=== PATIENT | male | born 1985 | race Caucasian/White ===

== ENCOUNTER 2019-10-26 08:46 | Outpatient (RCR) | payer MEDICARE, MEDICAID, SELFPAY | END 2019-11-02 23:59 | disposition home or self-care (01) | LOC: SPT 08:46 | PROVIDERS: PCP Family Medicine; Visit Provider Family Medicine | DX: S86.812D Strain of other muscle(s) and tendon(s) at lower leg level, left leg, subsequent encounter (principal); X58.XXXD Exposure to other specified factors, subsequent encounter | CPT/HCPCS: 97110; 97161 ==

== ENCOUNTER 2020-11-07 02:19 | Emergency (ER) | payer MEDICARE, MEDICAID, SELFPAY ==
[2020-11-07 02:25] VITALS: BP 125/71; PULSE 88; RESP 16; TEMP 36.9; O2SAT 95; BMI 46.3
--- NOTE | 2020-11-07 03:33 | XRR_ITS ---
PROCEDURE INFORMATION: Exam: XR Chest Exam date and time: 11/07/2020 3:33 AM Age: 35 years old Clinical indication: Sternal or substernal pain; Additional info: Cp TECHNIQUE: Imaging protocol: XR of the chest. Views: 1 view. COMPARISON: CR Chest 2 views* [id number] 02/01/2016 9:30 AM FINDINGS: Lungs: Low lung volumes. There is a patchy airspace opacity in the left lower lobe, concerning for pneumonia. Pleural spaces: Unremarkable. No pleural effusion. No pneumothorax. Heart/Mediastinum: Unremarkable. No cardiomegaly. Bones/joints: Unremarkable. XR/XR chest 1V portable [id number] IMPRESSION: Imaging findings concerning for left lower lobe pneumonia.
[2020-11-07 03:38] VITALS: BP 128/80; PULSE 74; RESP 22; O2SAT 94
[2020-11-07 03:43] VITALS: RESP 22
[2020-11-07] MEDS: morphine 4 mg/mL SDV 1 mL IVP (03:43)
[2020-11-07] MEDS: ondansetron 2 mg/ML SDV 2 mL 4 MG IVP (03:43)
[2020-11-07 03:50] LABS: Basophils % 0.3 %; Eosinophils # 0.2 10^3/uL (0.0-0.8); Eosinophils % 2.4 %; Lymphocytes # 1.9 10^3/uL (0.8-4.8); Lymphocytes % 21.7 %; Mean Corpuscular HGB Conc 32.6 g/dL (30.0-36.0); Mean Corpuscular Hemoglobin 27.7 pg (28.0-34.0); Mean Corpuscular Volume 85.1 fl (80-94); Mean Platelet Volume 10.2 fL (7.4-10.4); Monocytes # 0.7 10^3/uL (0.2-0.9); Monocytes % 8.4 %; Nucleated Red Blood Cells % 0 %; Platelet Count 230 10^3/cmm (130-400); Red Blood Count 5.05 10^6/uL (4.1-5.3); Red Cell Distribution Width 13.1 % (12.1-15.1); White Blood Count 8.7 10^3/uL (4.0-10.0)
[2020-11-07 04:03] LABS: D Dimer 0.52 ug/mIFEU (0-0.59)
[2020-11-07 04:10] LABS: Troponin(5th) Baseline 8 ng/L (0-15)
[2020-11-07 04:17] LABS: Alanine Aminotransferase 29 U/L (0-41); Albumin Level 4.1 g/dL (3.5-5.2); Alkaline Phosphatase 69 IU/L (40-130); Aspartate Amino Transferase 19 U/L (0-40); Blood Urea Nitrogen 13 mg/dL (6-20); Calcium 8.9 mg/dL (8.5-10.5); Carbon Dioxide 26 mmol/L (22-29); Chloride 103 mmol/L (98-107); Creatine Phosphokinase 51 U/L (39-308); Globulin 2.2 g/dL (1.3-4.6); Glomerular Filtration Rate 109.4 mL/min (90-130); Glucose 93 mg/dL (65-115); NT Pro B Type Natriuretic Pept 5 pg/mL (0-125); Osmolality Calculated 290 mOsm/kg (285-295); Sodium 140 mmol/L (136-145); Total Bilirubin 0.5 mg/dL (0.15-1.2); Total Protein 6.3 g/dL (6.6-8.7)
[2020-11-07] MEDS: ketorolac 30 mg/mL INJ 15 MG IVP (05:08)
[2020-11-07 05:15] VITALS: BP 125/85; PULSE 83; RESP 17; TEMP 36.6; O2SAT 97
--- NOTE | 2020-11-07 08:09 | ED_ITS ---
HPI - Chest Pain General: Chief Complaint: Chest Pain Stated Complaint: CP Time Seen by Provider: 11/07/20 03:16 History of Present Illness: HPI narrative: 35-year-old male with sharp chest discomfort to the left parasternal chest. He is experienced the pain for several hours. He has a history of this prior. He denies any fever cough. Denies vomiting or diarrhea. He denies any known sick contacts MD complaint: chest pain Pertinent past history: other Onset (ago): hour(s) Timing of current episode: constant Prior episodes: Yes Onset: during rest Pain location: substernal and left chest Pain radiation: none Quality: sharp Relieving factors: nothing Exacerbating factors: nothing Context: other Associated symptoms: Deny diaphoresis, dyspnea, fever(s), nausea, palpitations or vomiting Treatment prior to arrival: other (Tylenol which helped some) Review of Systems Const: Denies: fever(s) or diaphoresis Card: Denies: palpitations Resp: Denies: dyspnea GI: Denies: nausea or vomiting Physical Exam Const: COMMON NORMALS: no acute distress GENERAL APPEARANCE: cooperative and comfortable Chest: COMMONS NORMALS: normal inspection of the chest CHEST: Yes tenderness Resp: COMMON NORMALS: normal respiratory effort, No use of accessory muscles and clear to auscultation bilaterally AUSCULTATION: clear to auscultation bilaterally Cardio: COMMON NORMALS: regular rate and regular rhythm RATE: regular rate RHYTHM: regular rhythm GI: COMMON NORMALS: Normal to inspection, nondistended, normoactive bowel s ounds present, Soft to palpation and non-tender PALPATION: Yes Soft to palpation Extremity: COMMON NORMALS: no pedal edema Course Vital Signs: Vital signs: Vital Signs Temperature 97.9 F 11/07/20 05:15 Pulse Rate 83 11/07/20 05:15 Respiratory Rate 17 11/07/20 05:15 Blood Pressure 125/85 11/07/20 05:15 Pulse Oximetry 97 11/07/20 05:15 MDM - Chest Pain MDM Narrative: Medical decision making narrative: 85-year-old male with some what reproducible chest pain that is sharp. No shortness of breath or associated symptoms. D-dimer is negative. EKG shows a normal sinus rhythm without acute ST changes, and a normal troponin. Other laboratory is benign. Chest x-ray shows what appears to be atelectasis in the left base. I do not see a consolidation. he will be allowed home. Lab Data: Labs: Lab Results 11/07/20 11/07/20 11/07/20 Range/Units 03:30 03:30 03:30 WBC 8.7 (4.0-10.0) 10^3/ uL RBC 5.05 (4.1-5.3) 10^6/u L Hgb 14.0 (11.7-16.6) g/dL Hct 43.0 (42.0-52.0) % MCV 85.1 (80-94) fl MCH 27.7 L (28.0-34.0) pg MCHC 32.6 (30.0-36.0) g/dL RDW 13.1 (12.1-15.1) % Plt Count 230 (130-400) 10^3/c mm MPV 10.2 (7.4-10.4) fL Neut % (Auto) 67.0 % Lymph % (Auto) 21.7 % Bertie % (Auto) 8.4 % Eos % (Auto) 2.4 % Baso % (Auto) 0.3 % Neut # (Auto) 5.80 (1.8-7.7) 10^3/u L Lymph # (Auto) 1.9 (0.8-4.8) 10^3/u L Bertie # (Auto) 0.7 (0.2-0.9) 10^3/u L Eos # (Auto) 0.2 (0.0-0.8) 10^3/u L Baso # (Auto) 0.0 (0.0-0.1) 10^3/u L Nucleated RBC % (a uto) 0 % Nucleated RBCs # 0.0 /100WBC D-Dimer 0.52 (0-0.59) ug/mIFE U Sodium 140 (136-145) mmol/L Potassium 4.0 (3.5-5.1) mmol/L Chloride 103 (98-107) mmol/L Carbon Dioxide 26 (22-29) mmol/L Anion Gap 15.0 (5-19) BUN 13 (6-20) mg/dL Creatinine 0.8 (0.7-1.2) mg/dL GFR Calculation 109.4 (90-130) mL/min Glucose 93 (65-115) mg/dL Calculated Osmolal ity 290 (285-295) mOsm/k g Calcium 8.9 (8.5-10.5) mg/dL Total Bilirubin 0.5 (0.15-1.2) mg/dL AST 19 (0-40) U/L ALT 29 (0-41) U/L Alkaline Phosphata se 69 (40-130) IU/L Creatine Kinase 51 (39-308) U/L Troponin T Baselin e (0-15) ng/L NT-Pro-B Natriuret Pep 5 (0-125) pg/mL Total Protein 6.3 L (6.6-8.7) g/dL Albumin 4.1 (3.5-5.2) g/dL Globulin 2.2 (1.3-4.6) g/dL 11/07/20 Range/Units 03:30 WBC (4.0-10.0) 10^3/ uL RBC (4.1-5.3) 10^6/u L Hgb (11.7-16.6) g/dL Hct (42.0-52.0) % MCV (80-94) fl MCH (28.0-34.0) pg MCHC (30.0-36.0) g/dL RDW (12.1-15.1) % Plt Count (130-400) 10^3/c mm MPV (7.4-10.4) fL Neut % (Auto) % Lymph % (Auto) % Bertie % (Auto) % Eos % (Auto) % Baso % (Auto) % Neut # (Auto) (1.8-7.7) 10^3/u L Lymph # (Auto) (0.8-4.8) 10^3/u L Bertie # (Auto) (0.2-0.9) 10^3/u L Eos # (Auto) (0.0-0.8) 10^3/u L Baso # (Auto) (0.0-0.1) 10^3/u L Nucleated RBC % (a uto) % Nucleated RBCs # /100WBC D-Dimer (0-0.59) ug/mIFE U Sodium (136-145) mmol/L Potassium (3.5-5.1) mmol/L Chloride (98-107) mmol/L Carbon Dioxide (22-29) mmol/L Anion Gap (5-19) BUN (6-20) mg/dL Creatinine (0.7-1.2) mg/dL GFR Calculation (90-130) mL/min Glucose (65-115) mg/dL Calculated Osmolal ity (285-295) mOsm/k g Calcium (8.5-10.5) mg/dL Total Bilirubin (0.15-1.2) mg/dL AST (0-40) U/L ALT (0-41) U/L Alkaline Phosphata se (40-130) IU/L Creatine Kinase (39-308) U/L Troponin T Baselin e 8 (0-15) ng/L NT-Pro-B Natriuret Pep (0-125) pg/mL Total Protein (6.6-8.7) g/dL Albumin (3.5-5.2) g/dL Globulin (1.3-4.6) g/dL Discharge Plan Discharge Patient Disposition: Home Clinical Impression: Atypical chest pain, Acute costochondritis Condition: Stable Prescriptions: New ketorolac 10 mg tablet 10 mg PO TID PRN (Reason: pain) Qty: 10 RF: 0 Discharge Orders: Discharge ED (Routine); Ordered 11/07/20 Ordered By: Ted Arriaga Discharge Diet: Advance as tolerated Discharge Activity: Increase activity as tolerated Patient Instructions: Costochondritis (ED) Activity Restrictions/Additional Instructions: Return for worsening pain despite treatment, development of fever, cough, other concerns. Coding Level of Care Code ED Berry Planter for Shon Norwood
== END 2020-11-07 05:10 | disposition home or self-care (01) ==
PROVIDERS: Emergency Provider Emergency Medicine
DX: R07.89 Other chest pain (principal); M94.0 Chondrocostal junction syndrome [Tietze]
CPT/HCPCS: 71045; 80053; 82550; 83880; 84484; 85025; 85378; 96374; 96375; 99284; J1885; J2270; J2405

== ENCOUNTER 2021-08-04 16:27 | Outpatient (CLI) | payer MEDICARE, MEDICAID, SELFPAY ==
--- NOTE | 2021-08-04 | USR_ITS ---
PROCEDURE INFORMATION: Exam: US Duplex Left Lower Extremity Veins, Limited Exam date and time: 08/04/2021 4:39 PM Age: 36 years old Clinical indication: Pain; Leg, lower; Left; Additional info: Lle pain and swelling TECHNIQUE: Imaging protocol: Real-time Duplex ultrasound of the Left Lower Extremity with 2-D curry scale, color Doppler flow and spectral waveform analysis with image documentation. Limited exam focused on the left lower extremity veins. COMPARISON: US ROR venous duplex 10/20/2019 2:36 PM FINDINGS: Left deep veins: Occlusive DVT in the left posterior tibial vein from the calf to the ankle. Left superficial veins: Unremarkable. Saphenofemoral junction is patent without thrombus. Soft tissues: Unremarkable. US/CV venous duplex [id number] IMPRESSION: Occlusive DVT in the left posterior tibial vein from the calf to the ankle.
== END 2021-08-04 16:28 | disposition home or self-care (01) ==
PROVIDERS: Visit Provider Family Medicine
DX: M79.662 Pain in left lower leg (principal); M79.89 Other specified soft tissue disorders; I82.442 Acute embolism and thrombosis of left tibial vein
CPT/HCPCS: 93971

== ENCOUNTER 2022-01-26 05:28 | Emergency (ER) | payer MEDICARE, MEDICAID, SELFPAY ==
[2022-01-26 05:29] VITALS: BP 135/76; PULSE 67; RESP 18; TEMP 36.9; O2SAT 96; BMI 45.6
--- NOTE | 2022-01-26 05:32 | USR_ITS ---
PROCEDURE INFORMATION: Exam: US Abdomen, Limited; Right Upper Quadrant Exam date and time: 01/26/2022 5:45 AM Age: 36 years old Clinical indication: Abdominal pain; Epigastric; Additional info: Abd pain TECHNIQUE: Imaging protocol: Real time ultrasound of the abdomen with image documentation. Limited exam focused on the right upper quadrant. COMPARISON: No relevant prior studies available. FINDINGS: Liver: Liver is diffusely increased in echogenicity, most commonly seen in hepatic steatosis, though other forms of parenchymal liver disease could have a similar appearance. This limits evaluation for subtle isoechoic masses but no masses are seen. Patent main portal vein with normal direction of flow. Gallbladder: Gallstones noted. There is no gallbladder wall thickening or pericholecystic fluid. Positive sonographic Nova's sign. Biliary ducts: Normal. No stones. No dilation. Pancreas: Visualized pancreas is unremarkable. Right kidney: Normal. No mass. No hydronephrosis. US/US gall bladder [id number] IMPRESSION: 1. Hyperechoic liver, which can be seen with fatty infiltration or hepatocellular disease. 2. Imaging findings suggestive of calculus cholecystitis. Further evaluation with HIDA scan should be considered in the adequate clinical setting.
--- NOTE | 2022-01-26 05:33 | ED_ITS ---
Documented by User: Juliane Nieto MD 01/26/22 05:35 HPI - Abdominal Pain General: Chief Complaint: Abdominal Pain Stated Complaint: ABD PAIN Time Seen by Provider: 01/26/22 05:29 Source: patient and EMS Mode of arrival: EMS Limitations: no limitations History of Present Illness: 36-year-old male states has been having right upper quadrant pain since last evening he states the pain is worsening states pain is currently 9 out of 10 states it is worse with palpation. He has no surgical history he has had nausea denies vomiting he denies any fever denies any diarrhea. Denies any known sick contacts. Associated Symptoms: Reports nausea; Denies chills, dysuria and fever(s) Review of Systems Const: Denies: fever(s), chills, body aches or change in appetite Eyes: Denies: blurry vision or eye discomfort ENMT: Denies: throat pain or dental pain Card: Denies: chest pain Resp: Denies: dyspnea GI: Reports: abdominal pain and nausea : Denies: dysuria Musc: Denies: neck pain or back pain Skin/Breast: Denies: rash Neuro: Denies: headache(s) Psych: Denies: depression Dominic/Lymph: Denies: easy bruising All/Imm: Denies: urticaria PFSH ED PFSH: Medical History (Updated 01/26/22 @ 07:13 by Nghia Ralph DO) No pertinent past medical history Social History (Updated 01/26/22 @ 05:34 by Juliane Nieto MD) Substance/Drug Use: never Physical Exam Const: COMMON NORMALS: no acute distress, patient oriented x3 and healthy appearing HENMT: COMMON NORMALS: normocephalic and atraumatic HEAD & SCALP: normocephalic and atraumatic Eye: COMMON NORMALS: Equal, round and reactive pupils present and EOMs intact bilaterally PUPIL: Yes Equal, round and reactive pupils present Neck/C-Spine: COMMON NORMALS: full ROM and supple Chest: COMMONS NORMALS: normal inspection of the chest and normal palpation of entire chest wall Resp: COMMON NORMALS: normal respiratory effort, No retractions, No use of ac cessory muscles and clear to auscultation bilaterally AUSCULTATION: clear to auscultation bilaterally Cardio: COMMON NORMALS: regular rate, regular rhythm and No murmurs present (Cardio) RATE: regular rate RHYTHM: regular rhythm GI: COMMON NORMALS: Normal to inspection, nondistended, normoactive bowel sounds present, Soft to palpation and no masses PALPATION: Yes Soft to palpation and Yes Tenderness to palpation present (GI) Details: RUQ Extremity: COMMON NORMALS: normal to inspection and full ROM Neuro: COMMON NORMALS: patient oriented x3, moves all extremities and no focal motor deficits Psych: COMMON NORMALS: mental status grossly normal, Normal thought process present and cooperative THOUGHT PROCESS: Normal thought process present Skin: COMMON NORMALS: no rashes or lesions noted and no wounds GENERAL SKIN EXAM: no rashes or lesions noted Course Vital Signs: Vital signs: Vital Signs Temperature 98.4 F 01/26/22 05:29 Pulse Rate 55 L 01/26/22 06:15 Respiratory Rate 16 01/26/22 06:15 Blood Pressure 115/74 01/26/22 06:15 Pulse Oximetry 97 01/26/22 06:15 Oxygen Delivery Me thod 01/26/22 06:15 Oxygen Flow Rate 2 01/26/22 06:15 MDM - Abdominal Pain Lab Data 01/26/22 05:48 01/26/22 05:48 Labs/Radiology: Radiology Impressions Gallbladder Ultrasound 01/26/22 05:32 IMPRESSION: 1. Hyperechoic liver, which can be seen with fatty infiltration or hepatocellular disease. 2. Imaging findings suggestive of calculus cholecystitis. Further evaluation with HIDA scan should be considered in the adequate clinical setting. Laboratory Results WBC 9.5 10^3/uL (4.0-10.0) 01/26/22 05:48 RBC 5.31 10^6/uL (4.1-5.3) H 01/26/22 05:48 Hgb 14.7 g/dL (11.7-16.6) 01/26/22 05:48 Hct 45.0 % (42.0-52.0) 01/26/22 05:48 MCV 84.7 fl (80-94) 01/26/22 05:48 MCH 27.7 pg (28.0-34.0) L 01/26/22 05:48 MCHC 32.7 g/dL (30.0-36.0) 01/26/22 05:48 RDW 13.1 % (12.1-15.1) 01/26/22 05:48 Plt Count 241 10^3/cmm (130-400) 01/26/22 05:48 MPV 10.3 fL (7.4-10.4) 01/26/22 05:48 Neut % (Auto) 56.8 % 01/26/22 05:48 Lymph % (Auto) 31.3 % 01/26/22 05:48 Screven % (Auto) 8.1 % 01/26/22 05:48 Eos % (Auto) 3.0 % 01/26/22 05:48 Baso % (Auto) 0.6 % 01/26/22 05:48 Neut # (Auto) 5.41 10^3/uL (1.8-7.7) 01/26/22 05:48 Lymph # (Auto) 3.0 10^3/uL (0.8-4.8) 01/26/22 05:48 [place] # (Auto) 0.8 10^3/uL (0.2-0.9) 01/26/22 05:48 Eos # (Auto) 0.3 10^3/uL (0.0-0.8) 01/26/22 05:48 Baso # (Auto) 0.1 10^3/uL (0.0-0.1) 01/26/22 05:48 Nucleated RBC % (auto) 0 % 01/26/22 05:48 Nucleated RBCs # 0.0 /100WBC 01/26/22 05:48 Sodium 140 mmol/L (136-145) 01/26/22 05:48 Potassium 4.1 mmol/L (3.5-5.1) 01/26/22 05:48 Chloride 103 mmol/L (98-107) 01/26/22 05:48 Carbon Dioxide 25 mmol/L (22-29) 01/26/22 05:48 Anion Gap 16.1 (5-19) 01/26/22 05:48 BUN 14 mg/dL (6-20) 01/26/22 05:48 Creatinine 1.0 mg/dL (0.7-1.2) 01/26/22 05:48 GFR Calculation 84.1 mL/min (90-130) L 01/26/22 05:48 Glucose 115 mg/dL (65-115) 01/26/22 05:48 Calculated Osmolality 291 mOsm/kg (285-295) 01/26/22 05:48 Calcium 9.5 mg/dL (8.5-10.5) 01/26/22 05:48 Total Bilirubin 0.3 mg/dL (0.15-1.2) 01/26/22 05:48 AST 18 U/L (0-40) 01/26/22 05:48 ALT 25 U/L (0-41) 01/26/22 05:48 Alkaline Phosphatase 86 U/L (40-130) 01/26/22 05:48 Total Protein 6.9 g/dL (6.6-8.7) 01/26/22 05:48 Albumin 4.2 g/dL (3.5-5.2) 01/26/22 05:48 Globulin 2.7 g/dL (1.3-4.6) 01/26/22 05:48 Lipase 21 U/L (13-60) 01/26/22 05:48 Discharge Plan Discharge Patient Disposition: Home Clinical Impression: Biliary colic, Cholelithiasis Prescriptions: New hydrocodone-acetaminophen 5-325 mg tablet 1 tab PO Q6H PRN (Reason: pain) Qty: 7 0RF ondansetron HCl 4 mg tablet 4 mg PO Q6H PRN (Reason: nausea and vomiting) Qty: 20 0RF No Action ketorolac 10 mg tablet 10 mg PO TID PRN (Reason: pain) Qty: 10 0RF Discharge Orders: Discharge ED (Routine); Ordered 01/26/22 Ordered By: Nghia Ralph Patient Instructions: Abdominal Pain (ED), Opioid Safety, Pain Management Activity Restrictions/Additional Instructions: You were seen today for abdominal pain gallbladder ultrasound to suggest gallstones although there is no acute infection in the gallbladder laboratory's test showed the same. Avoid fatty foods spicy foods, meats and citrus foods. 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 Sign Out Sign Out Data: Patient Sign Out occurred on 01/26/22 at 06:07. Patient's care was discussed, a nd care was transferred from to Nghia Ralph DO. Coding Level of Care Code ED [employer] Builder for Chg Fwd Exam Comprehensive Documented by User: Nghia Ralph DO 01/26/22 07:15 HPI - Abdominal Pain General: Chief Complaint: Abdominal Pain Stated Complaint: ABD PAIN Time Seen by Provider: 01/26/22 05:29 PFSH ED PFSH: Medical History (Updated 01/26/22 @ 07:13 by Nghia Ralph DO) No pertinent past medical history Social History (Updated 01/26/22 @ 05:34 by Juliane Nieto MD) Substance/Drug Use: never Course Vital Signs: Vital signs: Vital Signs Temperature 98.4 F 01/26/22 05:29 Pulse Rate 55 L 01/26/22 06:15 Respiratory Rate 16 01/26/22 06:15 Blood Pressure 115/74 01/26/22 06:15 Pulse Oximetry 97 01/26/22 06:15 Oxygen Delivery Me thod 01/26/22 06:15 Oxygen Flow Rate 2 01/26/22 06:15 MDM - Abdominal Pain Medical Decision Making Care assumed at change of shift. Labs and imaging reviewed cholelithiasis noted no acute changes of cholecystitis laboratory tests show no elevation of transaminases or T bili or white count. We will discharge patient home refer to general surgery. Discussed dietary restrictions to avoid further exacerbations. Medical Records I reviewed the patient's medical records. Lab Data I reviewed the patient's lab results. 01/26/22 05:48 01/26/22 05:48 Labs/Radiology: Radiology Impressions Gallbladder Ultrasound 01/26/22 05:32 IMPRESSION: 1. Hyperechoic liver, which can be seen with fatty infiltration or hepatocellular disease. 2. Imaging findings suggestive of calculus cholecystitis. Further evaluation with HIDA scan should be considered in the adequate clinical setting. Laboratory Results WBC 9.5 10^3/uL (4.0-10.0) 01/26/22 05:48 RBC 5.31 10^6/uL (4.1-5.3) H 01/26/22 05:48 Hgb 14.7 g/dL (11.7-16.6) 01/26/22 05:48 Hct 45.0 % (42.0-52.0) 01/26/22 05:48 MCV 84.7 fl (80-94) 01/26/22 05:48 MCH 27.7 pg (28.0-34.0) L 01/26/22 05:48 MCHC 32.7 g/dL (30.0-36.0) 01/26/22 05:48 RDW 13.1 % (12.1-15.1) 01/26/22 05:48 Plt Count 241 10^3/cmm (130-400) 01/26/22 05:48 MPV 10.3 fL (7.4-10.4) 01/26/22 05:48 Neut % (Auto) 56.8 % 01/26/22 05:48 Lymph % (Auto) 31.3 % 01/26/22 05:48 Screven % (Auto) 8.1 % 01/26/22 05:48 Eos % (Auto) 3.0 % 01/26/22 05:48 Baso % (Auto) 0.6 % 01/26/22 05:48 Neut # (Auto) 5.41 10^3/uL (1.8-7.7) 01/26/22 05:48 Lymph # (Auto) 3.0 10^3/uL (0.8-4.8) 01/26/22 05:48 Screven # (Auto) 0.8 10^3/uL (0.2-0.9) 01/26/22 05:48 Eos # (Auto) 0.3 10^3/uL (0.0-0.8) 01/26/22 05:48 Baso # (Auto) 0.1 10^3/uL (0.0-0.1) 01/26/22 05:48 Nucleated RBC % (auto) 0 % 01/26/22 05:48 Nucleated RBCs # 0.0 /100WBC 01/26/22 05:48 Sodium 140 mmol/L (136-145) 01/26/22 05:48 Potassium 4.1 mmol/L (3.5-5.1) 01/26/22 05:48 Chloride 103 mmol/L (98-107) 01/26/22 05:48 Carbon Dioxide 25 mmol/L (22-29) 01/26/22 05:48 Anion Gap 16.1 (5-19) 01/26/22 05:48 BUN 14 mg/dL (6-20) 01/26/22 05:48 Creatinine 1.0 mg/dL (0.7-1.2) 01/26/22 05:48 GFR Calculation 84.1 mL/min (90-130) L 01/26/22 05:48 Glucose 115 mg/dL (65-115) 01/26/22 05:48 Calculated Osmolality 291 mOsm/kg (285-295) 01/26/22 05:48 Calcium 9.5 mg/dL (8.5-10.5) 01/26/22 05:48 Total Bilirubin 0.3 mg/dL (0.15-1.2) 01/26/22 05:48 AST 18 U/L (0-40) 01/26/22 05:48 ALT 25 U/L (0-41) 01/26/22 05:48 Alkaline Phosphatase 86 U/L (40-130) 01/26/22 05:48 Total Protein 6.9 g/dL (6.6-8.7) 01/26/22 05:48 Albumin 4.2 g/dL (3.5-5.2) 01/26/22 05:48 Globulin 2.7 g/dL (1.3-4.6) 01/26/22 05:48 Lipase 21 U/L (13-60) 01/26/22 05:48 Discharge Plan Discharge Patient Disposition: Home Clinical Impression: Biliary colic, Cholelithiasis Prescriptions: New hydrocodone-acetaminophen 5-325 mg tablet 1 tab PO Q6H PRN (Reason: pain) Qty: 7 0RF ondansetron HCl 4 mg tablet 4 mg PO Q6H PRN (Reason: nausea and vomiting) Qty: 20 0RF No Action ketorolac 10 mg tablet 10 mg PO TID PRN (Reason: pain) Qty: 10 0RF Discharge Orders: Discharge ED (Routine); Ordered 01/26/22 Ordered By: Nghia Ralph Patient Instructions: Abdominal Pain (ED), Opioid Safety, Pain Management Activity Restrictions/Additional Instructions: You were seen today for abdominal pain gallbladder ultrasound to suggest gallstones although there is no acute infection in the gallbladder laboratory's test showed the same. Avoid fatty foods spicy foods, meats and citrus foods. 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 Sign Out Sign Out Data: Patient Sign Out occurred on 01/26/22 at 06:07. Patient's care was discussed, and care was transferred from to Nghia Ralph DO. Coding Level of Care Code ED [employer] Builder for Chg Fwd Exam Comprehensive
--- NOTE | 2022-01-26 05:44 | ECG_ITS ---
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 Measurements Intervals [place] Rate: 54 P: -5 MD: 209 QRS: 0 QRSD: 131 T: 26 QT: 454 QTc: 434 Interpretive Statements SINUS BRADYCARDIA WITH SINUS ARRHYTHMIA INTRAVENTRICULAR CONDUCTION DELAY [130+ ms QRS DURATION] MINIMAL VOLTAGE CRITERIA FOR LVH, CONSIDER NORMAL VARIANT [MEETS CRITERIA IN ONE OF: R(aVL), S(V1), R(V5), R(V5/V6)+S(V1)] PROBABLE LATERAL MYOCARDIAL INFARCTION , OF INDETERMINATE AGE [35 ms Q WAVE IN I/aVL/V5/V6] No previous ECG available for comparison Electronically Signed On 01-26-2022 11:09:40 TRUCKER HAND by Merritt Guzman M.D. [email or web address] [email or web address]/[id number]
[2022-01-26 05:50] VITALS: RESP 15; O2SAT 98
[2022-01-26] MEDS: morphine 4 mg/mL SDV 1 mL IVP (05:50)
[2022-01-26] MEDS: ondansetron 2 mg/ML SDV 2 mL 4 MG IVP (05:50)
[2022-01-26] MEDS: sodium chloride 0.9% 1,000 ML 999 ML IV (05:50)
[2022-01-26 06:06] LABS: Basophils # 0.1 10^3/uL (0.0-0.1); Basophils % 0.6 %; Eosinophils # 0.3 10^3/uL (0.0-0.8); Hemoglobin 14.7 g/dL (11.7-16.6); Lymphocytes % 31.3 %; Mean Corpuscular HGB Conc 32.7 g/dL (30.0-36.0); Mean Corpuscular Hemoglobin 27.7 pg (28.0-34.0); Mean Corpuscular Volume 84.7 fl (80-94); Mean Platelet Volume 10.3 fL (7.4-10.4); Monocytes # 0.8 10^3/uL (0.2-0.9); Monocytes % 8.1 %; Neutrophils # 5.41 10^3/uL (1.8-7.7); Neutrophils % 56.8 %; Nucleated Red Blood Cells % 0 %; Platelet Count 241 10^3/cmm (130-400); Red Blood Count 5.31 10^6/uL (4.1-5.3); Red Cell Distribution Width 13.1 % (12.1-15.1); White Blood Count 9.5 10^3/uL (4.0-10.0)
[2022-01-26 06:15] VITALS: BP 115/74; PULSE 55; RESP 16; O2SAT 97
[2022-01-26 06:26] LABS: Alanine Aminotransferase 25 U/L (0-41); Albumin Level 4.2 g/dL (3.5-5.2); Alkaline Phosphatase 86 U/L (40-130); Anion Gap 16.1 (5-19); Aspartate Amino Transferase 18 U/L (0-40); Blood Urea Nitrogen 14 mg/dL (6-20); Calcium 9.5 mg/dL (8.5-10.5); Carbon Dioxide 25 mmol/L (22-29); Chloride 103 mmol/L (98-107); Globulin 2.7 g/dL (1.3-4.6); Glomerular Filtration Rate 84.1 mL/min (90-130); Glucose 115 mg/dL (65-115); Lipase 21 U/L (13-60); Osmolality Calculated 291 mOsm/kg (285-295); Potassium 4.1 mmol/L (3.5-5.1); Sodium 140 mmol/L (136-145); Total Bilirubin 0.3 mg/dL (0.15-1.2); Total Protein 6.9 g/dL (6.6-8.7)
[2022-01-26 07:42] VITALS: BP 138/83; PULSE 62; RESP 13; O2SAT 94
--- NOTE | 2022-01-29 13:17 | DCPLANNER ---
Addendum entered by Sara Finn 02/15/22 14:12: Patient had a follow up appointment scheduled with general surgery, this appointment has been cancelled. Original Note: manager marketing had message to schedule a follow up appointment for patient with general surgery. manager marketing sent patients information to the front office staff at general surgery. Patients information will be printed and reviewed. Clinic will call patient with appointment information.
== END 2022-01-26 07:30 | disposition home or self-care (01) ==
PROVIDERS: Emergency Medicine; Emergency Provider Family Medicine
DX: K80.20 Calculus of gallbladder without cholecystitis without obstruction (principal)
CPT/HCPCS: 76705; 80053; 83690; 85025; 93005; 96361; 96374; 96375; 99285; J2270; J2405; J7030

== ENCOUNTER 2023-05-18 20:25 | Emergency (ER) | payer MEDICARE, MEDICAID, SELFPAY ==
[2023-05-18] VITALS (8 sets, daily range): BP systolic 105–136; BP diastolic 48–82; PULSE 65–108; RESP 13–35; TEMP 36.5; O2SAT 91–100
--- NOTE | 2023-05-18 20:53 | W.ED.ABDPA2 ---
Documented by User: OMRE Rodriguez 05/18/23 23:17 HPI - Abdominal Pain General: Chief Complaint: Abdominal Pain Stated Complaint: severe constant abd pain right side Time Seen by Provider: 05/18/23 20:28 Source: patient Mode of arrival: ambulatory Limitations: no limitations History of Present Illness: Patient is a 37-year-old male here from [facility] for evaluation of right lower abdominal pain. Patient states earlier today he was seated at his computer when he began feeling some pain to his right lower abdomen. Patient states since that time pain has progressively increased and is now complaining of severe persistent pain. He states on the way to the emergency department he got sick to his stomach and vomited once. He has not noticed any change in his bowel habits. He is urinating normally. He does not complain of any back or chest pain. No fevers. Denies previous abdominal surgeries. MD elicited complaint: abdominal pain Pertinent past history: none Onset (ago): hour(s) Pain Consistency: constant Location: RLQ Severity: severe Quality: sharp Radiation: none Migration to: no migration Exacerbating factors: movement Relieving factors: nothing Associated Symptoms: Reports nausea and vomiting (x 1); Denies change in bowel habits, chills, dysuria, fever(s), hematochezia and melena Review of Systems Const: Denies: fever(s), chills, body aches, fatigue or malaise Card: Denies: chest pain Resp: Denies: dyspnea GI: Reports: abdominal pain, nausea and vomiting (x 1); Denies: change in bowel habits, hematochezia or melena : Denies: flank pain, difficulty urinating, dysuria, urinary frequency, urinary urgency or urinary hesitancy Musc: Denies: back pain Skin/Breast: Denies: rash Neuro: Denies: headache(s), numbness in extremities, weakness in extremities, sensory changes or dizziness PFS ED PFSH: Medical History No pertinent past medical history Social History Substance/Drug Use: never Physical Exam Const: COMMON NORMALS: alert EXAM LIMITATIONS: other limitations (pt is diagnosed with autism and intellectual delays ) GENERAL APPEARANCE: cooperative and in distress (appears uncomfortable) Eye: COMMON NORMALS: no scleral icterus Chest: COMMONS NORMALS: normal inspection of the chest and normal palpation of entire chest wall Resp: COMMON NORMALS: normal respiratory effort and clear to auscultation bilaterally AUSCULTATION: clear to auscultation bilaterally Cardio: COMMON NORMALS: regular rate and regular rhythm RATE: regular rate RHYTHM: regular rhythm GI: COMMON NORMALS: Normal to inspection, nondistended, normoactive bowel sounds present AUSCULTATION: Yes normoactive bowel sounds PALPATION: Yes Tenderness to palpation present (GI) (throughout R abdomen), Yes Guarding due to palpation present (GI), No Rigid due to palpation and Yes Hepatomegaly present : COMMON NORMALS: Yes no CVA tenderness BLADDER/KIDNEY EXAM: Yes no CVA tenderness Back/Pelvis: COMMON NORMALS: no CVA tenderness and thoracic and lumbar spine normal to inspection Extremity: GENERAL: Yes normal exam except as noted Neuro: ESTEBAN COMA SCALE: document GCS findings [place] coma scale eye opening: Spontaneous [place] coma scale verbal response: Orientated [place] coma scale motor response: Obey commands [place] coma scale total score: 15 SENSORIUM/ORIENTATION: Yes alert Skin: COMMON NORMALS: no rashes or lesions noted GENERAL SKIN EXAM: no rashes or lesions noted Course Consultations: Consultation #1: Dr. Chan-recommends Cipro/Flagyl and follow up with general surgery in office; return precautions Vital Signs: Vital signs: Vital Signs Temperature 97.7 F 05/18/23 20:41 Pulse Rate 108 H 05/18/23 22:25 Respiratory Rate 16 05/18/23 22:25 Blood Pressure 128/71 05/18/23 22:25 Pulse Oximetry 93 05/18/23 22:25 Oxygen Delivery Me thod Room Air 05/18/23 20:41 MDM - Abdominal Pain Medical Decision Making Patient is a 37-year-old male here for complaints of right-sided abdominal pain beginning this morning. History is somewhat limited given his intellectual disability. He does have pain throughout the right side of his abdomen. Vitals are stable upon arrival. Blood work showing a white count of 15.4. LFTs including tbili and lipase are normal. CT scan showing acute cholecystitis with recommendations for correlation with biliary labs and right upper quadrant ultrasound. Interestingly, patient had an ultrasound back in 01/2022 which showed acute cholecystitis. He states he never followed up regarding this ultrasound but that pain subsided on its own. I spoke to general surgeon Dr. Chan and reviewed case with him. Agreed that obtaining US tonight probably wouldn't operations management professionals given his normal LFTs. He recommended placing patient on Cipro/Flagyl and having him follow-up with general surgery. Patient on re-examination appears much more improved. He is now rating his pain at a 2/10 and sleeping comfortably. Even with patient's intellectual disability, he remains his own guardian. He was instructed to give discharge paperwork to [facility] director so they can ensure proper follow-up. Incidental finding on his CT scan of osteonecrosis of both femoral heads. He will also be referred to orthopedics for this. Lab Data 05/18/23 21:02 05/18/23 21:02 Labs/Radiology: Radiology Impressions Abdomen/Pelvis CT 05/18/23 20:57 IMPRESSION: 1. Acute cholecystitis. Correlation with biliary labs and right upper quadrant ultrasound is recommended. 2. Osteonecrosis of both femoral heads. Follow-up outpatient orthopedic evaluation is recommended. 3. Hepatomegaly and hepatic steatosis. Consider correlation with clinical and laboratory findings for steatohepatitis. Laboratory Results WBC 15.41 10^3/uL (3.29-11.43) H 05/18/23 21: RBC 5.57 10^6/uL (3.85-5.65) 05/18/23 21: Hgb 15.10 g/dL (11.27-16.99) 05/18/23 21: Hct 45.4 % (37-53) 05/18/23 21: MCV 81.5 fl (82-101) L 05/18/23 21: MCH 27.1 pg (27-33) 05/18/23 21: MCHC 33.3 g/dL (30-55) 05/18/23 21: RDW 13.0 % (12.1-15.1) 05/18/23 21: Plt Count 310 10^3/cmm (157-399) 05/18/23 21: MPV 9.8 fL (7.4-10.4) 05/18/23 21: Neut % (Auto) 68.5 % 05/18/23 21: Lymph % (Auto) 20.9 % 05/18/23 21:02 [place] % (Auto) 8.1 % 05/18/23 21:02 Eos % (Auto) 1.9 % 05/18/23 21:02 Baso % (Auto) 0.3 % 05/18/23 21:02 Neut # (Auto) 10.55 10^3/uL (1.8-7.7) H 05/18/23 21:02 Lymph # (Auto) 3.2 10^3/uL (0.8-4.8) 05/18/23 21:02 [place] # (Auto) 1.3 10^3/uL (0.2-0.9) H 05/18/23 21:02 Eos # (Auto) 0.3 10^3/uL (0.0-0.8) 05/18/23 21:02 Baso # (Auto) 0.1 10^3/uL (0.0-0.1) 05/18/23 21:02 Nucleated RBC % (auto) 0 % 05/18/23 21:02 Nucleated RBCs # 0.0 /100WBC 05/18/23 21:02 Sodium 138 mmol/L (136-145) 05/18/23 21:02 Potassium 3.8 mmol/L (3.5-5.1) 05/18/23 21:02 Chloride 98 mmol/L (98-107) 05/18/23 21:02 Carbon Dioxide 25 mmol/L (22-29) 05/18/23 21:02 Anion Gap 18.8 (5-19) 05/18/23 21:02 BUN 14 mg/dL (6-20) 05/18/23 21:02 Creatinine 1.0 mg/dL (0.7-1.2) 05/18/23 21:02 GFR Calculation 83.6 mL/min (90-130) L 05/18/23 21:02 Glucose 146 mg/dL (65-115) H 05/18/23 21:02 Calculated Osmolality 289 mOsm/kg (285-295) 05/18/23 21:02 Calcium 9.8 mg/dL (8.5-10.5) 05/18/23 21:02 Total Bilirubin 0.4 mg/dL (0.15-1.2) 05/18/23 21:02 AST 17 U/L (0-40) 05/18/23 21:02 ALT 25 U/L (0-41) 05/18/23 21:02 Alkaline Phosphatase 89 U/L (40-130) 05/18/23 21:02 Total Protein 7.0 g/dL (6.6-8.7) 05/18/23 21:02 Albumin 4.5 g/dL (3.5-5.2) 05/18/23 21:02 Globulin 2.5 g/dL (1.3-4.6) 05/18/23 21:02 Lipase 21 U/L (13-60) 05/18/23 21:02 Urine Color Yellow (Yellow) 05/18/23 23:30 Urine Appearance Clear (CLEAR) 05/18/23 23:30 Urine pH 5 (5-7) 05/18/23 23:30 Ur Specific [place] 1.010 (1.005-1.030) 05/18/23 23:30 Urine Protein 1+ (Negative) H 05/18/23 23:30 Urine Glucose (UA) Norm (Normal) 05/18/23 23:30 Urine Ketones 1+ (Negative) H 05/18/23 23:30 Urine Blood Neg (Negative) 05/18/23 23:30 Urine Nitrate Negative (Negative) 05/18/23 23:30 Urine Bilirubin Neg (Negative) 05/18/23 23:30 Urine Urobilinogen Neg mg/dL (Negative) 05/18/23 23:30 Ur Leukocyte Esterase Trace (Negative) H 05/18/23 23:30 Urine RBC 0-4 /hpf (0-2) H 05/18/23 23:30 Urine WBC 0-4 /hpf (0-5) H 05/18/23 23:30 Ur Squamous Epith Cells 0-4 /hpf (0-5) H 05/18/23 23:30 Amorphous Sediment Not Reportable 05/18/23 23:30 Urine Bacteria Trace /hpf (NONE) 05/18/23 23:30 Hyaline Casts 0-4 /lpf H 05/18/23 23:30 Urine Mucus Trace /hpf 05/18/23 23:30 All radiology interpretation(s) finalized by discharge Discharge Plan Discharge Patient Disposition: Home Clinical Impression: Cholecystitis Condition: Stable Prescriptions: New metronidazole 500 mg tablet 500 mg PO BID 7 Days Qty: 14 0RF Cipro 500 mg tablet 500 mg PO Q12H Qty: 14 0RF Continued hydrocodone-acetaminophen 5-325 mg tablet 1 tab PO Q6H PRN (Reason: pain) Qty: 7 0RF ondansetron HCl 4 mg tablet 4 mg PO Q6H PRN (Reason: nausea and vomiting) Qty: 10 0RF No Action ketorolac 10 mg tablet 10 mg PO TID PRN (Reason: pain) Qty: 10 0RF Discharge Orders: Discharge ED (Routine); Ordered 05/18/23 Ordered By: Anais Mascorro Referrals: Davin Chew MD [Primary Care Provider] - Patient Instructions: Cholecystitis (ED), Biliary Colic (ED), Gallstones (ED), Opioid Safety, Pain Management Activity Restrictions/Additional Instructions: PLEASE SHOW DISCHARGE PAPERWORK TO [facility] DIRECTOR UPON DISCHARGE AND RETURN TO THE FACILITY. Your CT scan today showed cholecystitis which is acute inflammation of your gallbladder. I have spoken to our general surgeon on-call and because your liver/biliary labs are normal they are recommending we treat you with antibiotics at this time. Case management should reach out to [facility] this week to set you up with your follow-up appointment with general surgery. YOUR ANTIBIOTICS AND PAIN/NAUSEA MEDS HAVE BEEN ESCRIPTED TO [facility]. PICK THESE UP TOMORROW AND START IMMEDIATELY. You need to return to the emergency department immediately for worsening or constant pain, repetitive episodes of vomiting, fevers greater than 100.4, yellowing to your skin or eyes, generally feeling worse or unwell, or any other concerns you may have. Your CT scan also showed an incidental finding of: Osteonecrosis of both femoral heads. Follow-up outpatient orthopedic evaluation is recommended. I will also place a case management referral for this. Coding Level of Care Code ED Mail Opener for Chg Fwd Documented by User: Ted Arriaga, 05/18/23 23:52 HPI - Abdominal Pain General: Chief Complaint: Abdominal Pain Stated Complaint: severe constant abd pain right side Time Seen by Provider: 05/18/23 20:28 [facility] ED PFSH: Medical History No pertinent past medical history Social History Substance/Drug Use: never Physical Exam Neuro: ESTEBAN COMA SCALE: document GCS findings [place] coma scale total score: 15 Course Vital Signs: Vital signs: Vital Signs Temperature 97.7 F 05/18/23 20:41 Pulse Rate 108 H 05/18/23 22:25 Respiratory Rate 16 05/18/23 22:25 Blood Pressure 128/71 05/18/23 22:25 Pulse Oximetry 93 05/18/23 22:25 Oxygen Delivery Me thod Room Air 05/18/23 20:41 MDM - Abdominal Pain Medical Decision Making Patient is a 37-year-old male here for complaints of right-sided abdominal pain beginning this morning. History is somewhat limited given his intellectual disability. He does have pain throughout the right side of his abdomen. Vitals are stable upon arrival. Blood work showing a white count of 15.4. LFTs including tbili and lipase are normal. CT scan showing acute cholecystitis with recommendations for correlation with biliary labs and right upper quadrant ultrasound. Interestingly, patient had an ultrasound back in 01/2022 which showed acute cholecystitis. He states he never followed up regarding this ultrasound but that pain subsided on its own. I spoke to general surgeon Dr. Chan and reviewed case with him. Agreed that obtaining US tonight probably wouldn't operations management professionals given his normal LFTs. He recommended placing patient on Cipro/Flagyl and having him follow-up with general surgery. Patient on re-examination appears much more improved. He is now rating his pain at a 2/10 and sleeping comfortably. Even with patient's intellectual disability, he remains his own guardian. He was instructed to give discharge paperwork to [facility] director so they can ensure proper follow-up. Incidental finding on his CT scan of osteonecrosis of both femoral heads. He will also be referred to orthopedics for this. This patient was originally seen by Mascorro?MEGAN Loza? I agree with her history, evaluation, and treatment. Lab Data 05/18/23 21:02 05/18/23 21:02 Labs/Radiology: Radiology Impressions Abdomen/Pelvis CT 05/18/23 20:57 IMPRESSION: 1. Acute cholecystitis. Correlation with biliary labs and right upper quadrant ultrasound is recommended. 2. Osteonecrosis of both femoral heads. Follow-up outpatient orthopedic evaluation is recommended. 3. Hepatomegaly and hepatic steatosis. Consider correlation with clinical and laboratory findings for steatohepatitis. Laboratory Results WBC 15.41 10^3/uL (3.29-11.43) H 05/18/23 21:02 RBC 5.57 10^6/uL (3.85-5.65) 05/18/23 21: Hgb 15.10 g/dL (11.27-16.99) 05/18/23 21: Hct 45.4 % (37-53) 05/18/23 21: MCV 81.5 fl (82-101) L 05/18/23 21: MCH 27.1 pg (27-33) 05/18/23 21: MCHC 33.3 g/dL (30-55) 05/18/23 21: RDW 13.0 % (12.1-15.1) 05/18/23 21: Plt Count 310 10^3/cmm (157-399) 05/18/23 21:02 MPV 9.8 fL (7.4-10.4) 05/18/23 21:02 Neut % (Auto) 68.5 % 05/18/23 21:02 Lymph % (Auto) 20.9 % 05/18/23 21:02 [place] % (Auto) 8.1 % 05/18/23 21:02 Eos % (Auto) 1.9 % 05/18/23 21:02 Baso % (Auto) 0.3 % 05/18/23 21:02 Neut # (Auto) 10.55 10^3/uL (1.8-7.7) H 05/18/23 21: Lymph # (Auto) 3.2 10^3/uL (0.8-4.8) 05/18/23 21:02 [place] # (Auto) 1.3 10^3/uL (0.2-0.9) H 05/18/23 21:02 Eos # (Auto) 0.3 10^3/uL (0.0-0.8) 05/18/23 21:02 Baso # (Auto) 0.1 10^3/uL (0.0-0.1) 05/18/23 21:02 Nucleated RBC % (auto) 0 % 05/18/23 21:02 Nucleated RBCs # 0.0 /100WBC 05/18/23 21:02 Sodium 138 mmol/L (136-145) 05/18/23 21:02 Potassium 3.8 mmol/L (3.5-5.1) 05/18/23 21:02 Chloride 98 mmol/L (98-107) 05/18/23 21:02 Carbon Dioxide 25 mmol/L (22-29) 05/18/23 21:02 Anion Gap 18.8 (5-19) 05/18/23 21:02 BUN 14 mg/dL (6-20) 05/18/23 21:02 Creatinine 1.0 mg/dL (0.7-1.2) 05/18/23 21:02 GFR Calculation 83.6 mL/min (90-130) L 05/18/23 21:02 Glucose 146 mg/dL (65-115) H 05/18/23 21:02 Calculated Osmolality 289 mOsm/kg (285-295) 05/18/23 21:02 Calcium 9.8 mg/dL (8.5-10.5) 05/18/23 21:02 Total Bilirubin 0.4 mg/dL (0.15-1.2) 05/18/23 21:02 AST 17 U/L (0-40) 05/18/23 21:02 ALT 25 U/L (0-41) 05/18/23 21:02 Alkaline Phosphatase 89 U/L (40-130) 05/18/23 21:02 Total Protein 7.0 g/dL (6.6-8.7) 05/18/23 21:02 Albumin 4.5 g/dL (3.5-5.2) 05/18/23 21:02 Globulin 2.5 g/dL (1.3-4.6) 05/18/23 21:02 Lipase 21 U/L (13-60) 05/18/23 21:02 Urine Color Yellow (Yellow) 05/18/23 23:30 Urine Appearance Clear (CLEAR) 05/18/23 23:30 Urine pH 5 (5-7) 05/18/23 23:30 Ur Specific [place] 1.010 (1.005-1.030) 05/18/23 23:30 Urine Protein 1+ (Negative) H 05/18/23 23:30 Urine Glucose (UA) Norm (Normal) 05/18/23 23:30 Urine Ketones 1+ (Negative) H 05/18/23 23:30 Urine Blood Neg (Negative) 05/18/23 23:30 Urine Nitrate Negative (Negative) 05/18/23 23:30 Urine Bilirubin Neg (Negative) 05/18/23 23:30 Urine Urobilinogen Neg mg/dL (Negative) 05/18/23 23:30 Ur Leukocyte Esterase Trace (Negative) H 05/18/23 23:30 Urine RBC 0-4 /hpf (0-2) H 05/18/23 23:30 Urine WBC 0-4 /hpf (0-5) H 05/18/23 23:30 Ur Squamous Epith Cells 0-4 /hpf (0-5) H 05/18/23 23:30 Amorphous Sediment Not Reportable 05/18/23 23:30 Urine Bacteria Trace /hpf (NONE) 05/18/23 23:30 Hyaline Casts 0-4 /lpf H 05/18/23 23:30 Urine Mucus Trace /hpf 05/18/23 23:30 Discharge Plan Discharge Patient Disposition: Home Clinical Impression: Cholecystitis Condition: Stable Prescriptions: New metronidazole 500 mg tablet 500 mg PO BID 7 Days Qty: 14 0RF Cipro 500 mg tablet 500 mg PO Q12H Qty: 14 0RF Continued hydrocodone-acetaminophen 5-325 mg tablet 1 tab PO Q6H PRN (Reason: pain) Qty: 7 0RF ondansetron HCl 4 mg tablet 4 mg PO Q6H PRN (Reason: nausea and vomiting) Qty: 10 0RF No Action ketorolac 10 mg tablet 10 mg PO TID PRN (Reason: pain) Qty: 10 0RF Discharge Orders: Discharge ED (Routine); Ordered 05/18/23 Ordered By: Anais Mascorro Referrals: Davin Chew MD [Primary Care Provider] - Patient Instructions: Cholecystitis (ED), Biliary Colic (ED), Gallstones (ED), Opioid Safety, Pain Management Activity Restrictions/Additional Instructions: PLEASE SHOW DISCHARGE PAPERWORK TO [facility] DIRECTOR UPON DISCHARGE AND RETURN TO THE FACILITY. Your CT scan today showed cholecystitis which is acute inflammation of your gallbladder. I have spoken to our general surgeon on-call and because your liver/biliary labs are normal they are recommending we treat you with antibiotics at this time. Case management should reach out to [facility] this week to set you up with your follow-up appointment with general surgery. YOUR ANTIBIOTICS AND PAIN/NAUSEA [facility]. PICK THESE UP TOMORROW AND START IMMEDIATELY. You need to return to the emergency department immediately for worsening or constant pain, repetitive episodes of vomiting, fevers greater than 100.4, yellowing to your skin or eyes, generally feeling worse or unwell, or any other concerns you may have. Your CT scan also showed an incidental finding of: Osteonecrosis of both femoral heads. Follow-up outpatient orthopedic evaluation is recommended. I will also place a case management referral for this. Coding Level of Care Code ED Mail Opener for Shon Norwood
--- NOTE | 2023-05-18 20:57 | CTR_ITS ---
PROCEDURE INFORMATION: Exam: CT Abdomen And Pelvis With Contrast Exam date and time: 05/18/2023 9:38 PM Age: 37 years old Clinical indication: Abdominal pain; Localized; Right; Patient HX: RT sided abd pain with nausea; Additional info: R abdominal pain TECHNIQUE: Imaging protocol: Computed tomography of the abdomen and pelvis with contrast. Radiation optimization: All CT scans at this facility use at least one of these dose optimization techniques: automated exposure control; mA and/or kV adjustment per patient size (includes targeted exams where dose is matched to clinical indication); or iterative reconstruction. Contrast material: OMNI 350; Contrast volume: 125 ml; Contrast route: INTRAVENOUS (IV); COMPARISON: US gall bladder [id number] 01/26/2022 5:45 AM RADIATION DOSE METRICS: Total DLP (mGy-cm): 1343.58 FINDINGS: Lungs: Subsegmental bibasilar atelectasis. The visualized lung bases are otherwise grossly clear. Diaphragm: No evidence of diaphragmatic defect. Liver: Hepatomegaly and hepatic steatosis with right lobe measuring up to 23 cm. No evidence of focal hepatic lesion. Gallbladder and bile ducts: The gallbladder is inflamed. Suspected subtle stones in the gallbladder neck, which may be confirmed with gallbladder ultrasound. No ductal dilatation. Pancreas: Unremarkable. Spleen: Unremarkable. Adrenal glands: Unremarkable. Kidneys and ureters: No renal parenchymal abnormality. No hydronephrosis or ureteral stone. Stomach and bowel: No evidence of bowel obstruction or perienteric inflammatory changes. Appendix: Normal appendix. Intraperitoneal space: Trace-small free fluid. No evidence of free air or fluid collection. Vasculature: No aneurysmal dilatation or dissection of the abdominal aorta. The celiac trunk, SMA and COURTNEY are grossly patent. No evidence of IVC thrombus. The portal vein, SMV and splenic veins are grossly patent. Lymph nodes: No adenopathy. Urinary bladder: Grossly unremarkable. Reproductive: Grossly unremarkable. Bones/joints: No evidence of acute fracture or aggressive osseous lesion. There is osteonecrosis of both femoral heads. Soft tissues: No evidence of fluid collection or hematoma in the superficial soft tissues. CT/CT abdomen pelvis w con* [id number] IMPRESSION: 1. Acute cholecystitis. Correlation with biliary labs and right upper quadrant ultrasound is recommended. 2. Osteonecrosis of both femoral heads. Follow-up outpatient orthopedic evaluation is recommended. 3. Hepatomegaly and hepatic steatosis. Consider correlation with clinical and laboratory findings for steatohepatitis.
[2023-05-18] MEDS: sodium chloride 0.9% 1,000 ML 999 ML IV (21:16)
[2023-05-18] MEDS: ondansetron 2 mg/ML SDV 2 mL 4 MG IVP (21:17)
[2023-05-18] MEDS: morphine 4 mg/mL SDV 1 mL IVP (21:17)
[2023-05-18 21:18] LABS: Basophils # 0.1 10^3/uL (0.0-0.1); Basophils % 0.3 %; Eosinophils # 0.3 10^3/uL (0.0-0.8); Eosinophils % 1.9 %; Hematocrit 45.4 % (37-53); Lymphocytes # 3.2 10^3/uL (0.8-4.8); Lymphocytes % 20.9 %; Mean Corpuscular HGB Conc 33.3 g/dL (30-55); Mean Corpuscular Hemoglobin 27.1 pg (27-33); Mean Corpuscular Volume 81.5 fl (82-101); Mean Platelet Volume 9.8 fL (7.4-10.4); Monocytes # 1.3 10^3/uL (0.2-0.9); Monocytes % 8.1 %; Neutrophils # 10.55 10^3/uL (1.8-7.7); Neutrophils % 68.5 %; Nucleated Red Blood Cells % 0 %; Platelet Count 310 10^3/cmm (157-399); Red Blood Count 5.57 10^6/uL (3.85-5.65); White Blood Count 15.41 10^3/uL (3.29-11.43)
[2023-05-18 21:26] LABS: Alanine Aminotransferase 25 U/L (0-41); Albumin Level 4.5 g/dL (3.5-5.2); Alkaline Phosphatase 89 U/L (40-130); Anion Gap 18.8 (5-19); Aspartate Amino Transferase 17 U/L (0-40); Blood Urea Nitrogen 14 mg/dL (6-20); Calcium 9.8 mg/dL (8.5-10.5); Carbon Dioxide 25 mmol/L (22-29); Chloride 98 mmol/L (98-107); Creatinine Clr Calc Pharmacy 136.0215; Globulin 2.5 g/dL (1.3-4.6); Glomerular Filtration Rate 83.6 mL/min (90-130); Glucose 146 mg/dL (65-115); Lipase 21 U/L (13-60); Osmolality Calculated 289 mOsm/kg (285-295); Potassium 3.8 mmol/L (3.5-5.1); Sodium 138 mmol/L (136-145); Total Bilirubin 0.4 mg/dL (0.15-1.2)
[2023-05-18] MEDS: iohexol 350 mg/mL 500 mL Btl (per mL) IV (21:39)
[2023-05-18] MEDS: ciprofloxacin 500 mg Tablet PO (23:10)
[2023-05-18] MEDS: metroNIDAZOLE 500 MG Tablet PO (23:10)
[2023-05-18 23:48] LABS: Add Urine Microscopic? YES; Bacteria Urine TRACE /hpf; Bilirubin Urine Neg (Negative); Blood Urine Neg (Negative); Glucose Urine UA Norm (Normal); Hyaline Casts Urine 0-4 /lpf; Ketones Urine 1+ (Negative); Leukocyte Esterase Urine Trace (Negative); Mucus Urine TRACE /hpf; Nitrate Urine Negative (Negative); Protein Urine 1+ (Negative); RBC Urine 0-4 /hpf (0-2); Squamous Epithelial Cell Urine 0-4 /hpf (0-5); Urine Appearance Clear (CLEAR); Urine Color Yellow (Yellow); Urobilinogen Urine Neg (Negative); WBC Urine 0-4 /hpf (0-5); pH Urine 5 (5-7)
[2023-05-19 00:06] VITALS: BP 128/71; PULSE 108; RESP 16; TEMP 36.5; O2SAT 93
--- NOTE | 2023-05-20 07:11 | DCPLANNER ---
A message was sent to general surgery and ortho on 05/20/23 at 0713. The clinics should contact patient for appt.
== END 2023-05-19 00:08 | disposition home or self-care (01) ==
PROVIDERS: Emergency Provider Physician Assistant; PCP Family Medicine
DX: K81.9 Cholecystitis, unspecified (principal)
CPT/HCPCS: 74177; 80053; 81001; 83690; 85025; 96361; 96374; 96375; 99285; J2270; J2405; J7030; Q9967

== ENCOUNTER → 2023-05-27 07:58 | Outpatient (BNVA) | payer MEDICARE, MEDICAID, SELFPAY | PROVIDERS: PCP Family Medicine; Visit Provider Surgery | DX: K80.10 Calculus of gallbladder with chronic cholecystitis without obstruction (principal) | CPT/HCPCS: 99204 ==

== ENCOUNTER 2023-06-11 07:11 | Day surgery (SDC) | payer MEDICARE, MEDICAID, SELFPAY ==
[2023-06-11] VITALS (12 sets, daily range): BP systolic 92–119; BP diastolic 53–83; PULSE 61–77; RESP 14–22; TEMP 36.4–36.7; O2SAT 89–100; BMI 45.6
--- NOTE | 2023-06-11 07:17 | W.PM.OPSUD ---
Surgery/Procedure H&P Update DATE OF PROCEDURE: June 11, 2023 DATE H&P PERFORMED: 05/27/23 H&P UPDATE INFORMATION: I have reviewed H&P completed within last 30 days, I have examined patient prior to procedure and No changes to prior documentation PLANNED PROCEDURE: Operation Date: 06/11/23 08:45 Proposed Procedures p Laparoscopic Cholecystectomy(Not Applicable) - Oz Schmitz DO
[2023-06-11] MEDS: sodium chloride 0.9% 1,000 ML 30 ML IV (07:43)
--- NOTE | 2023-06-11 08:18 | ANES.PREANE2 ---
Pre-Anesthetic Assessment Height/Weight: Height 1.73 m Weight 136.078 kg Temp Pulse Resp BP Pulse Ox O2 Del Method 97.9 F 77 18 110/77 96 Room Air 06/11/23 07:20 06/11/23 07:20 06/11/23 07:20 06/11/23 07:20 06/11/23 07:20 06/11/23 07:52 Operation Date: 06/11/23 08:45 Proposed Procedures p Laparoscopic Cholecystectomy(Not Applicable) - Oz Schmitz DO Familial anesthetic complications: none Was Beta Hawa taken within 24 hours: N/A Was Clonidine taken within 24 hours: N/A Last intake: Intake Last Liquid Date 06/10/23 Last Liquid Time 21:00 Last Solid Date 06/10/23 Last Solid Time 19:00 Social No alcohol and No tobacco Exam alert, oriented x 3, clear to auscultation bilaterally and regular rate & rhythm Airway Submandibular: within normal limits Cervical ROM: within normal limits Mallampati: Class II Dentition: full CV/HEM Deep Vein Thrombosis Metabolic Morbid Obesity Neuropsych Bipolar Anesthetic Plan ASA status: 3 Anesthesia: General Medications/Allergies Home Medications Medication Instructions Recorded Confirmed Last Taken Type ondansetron HCl 4 mg tablet 4 mg PO Q6H PRN nausea and 05/18/23 06/10/23 Unknown Rx vomiting #10 tabs acetaminophen 500 mg tablet 500 mg PO Q6H PRN Pain 05/27/23 06/10/23 Unknown History (Tylenol Extra Strength) apixaban 2.5 mg tablet (Eliquis) 2.5 mg PO DAILY 05/27/23 06/10/23 06/08/23 History bupropion HCl 150 mg 24 hr tablet, 150 mg PO DAILY 06/10/23 06/10/23 06/10/23 History extended release Allergies Allergy/AdvReac Type Severity Reaction Status Date / Time No Known Allergies Allergy Verified 05/27/23 08:01 Current Medications Generic Name Dose Route Start Last Admin Trade Name Freq PRN Reason Stop Dose Admin Sodium Chloride 1,000 mls @ 30 mls/hr 06/11/23 07:30 06/11/23 07:43 Sodium Chloride 0.9% IV 06/12/23 07:29 30 mls/hr .Q24H ANTONIO Administration PFSH Anesthesia Medical History Intellectual disability DVT (deep venous thrombosis) Surgical History Hx of tonsillectomy Social History Smoking and tobacco/nicotine status: never used tobacco/nicotine Alcohol intake: never Substance/Drug Use: never Data Anesthesia Cardiac Studies: No Data to Display
[2023-06-11] MEDS: ceFAZolin 2,000 MG in sodium chloride 0.9% (plus) 50 ML 100 MG IV (08:50)
[2023-06-11] MEDS: ceFAZolin 1,000 mg SDV 1000 MG (08:50)
[2023-06-11] MEDS: lidocaine-epi 1% PF 1:200,000 30 mL SDV (09:44)
--- NOTE | 2023-06-11 09:49 | P.OP_ITS ---
Operative Report Date of procedure: June 11, 2023 Surgeon: Oz Schmitz DO Brief History: This very pleasant 37-year-old gentleman who presented to my office after an episode of acute calculus cholecystitis. He desired cholecystectomy. Laparoscopic cholecystectomy was indicated. The risk and benefits were explained and documented. Procedure: Preoperative diagnosis: Symptomatic cholelithiasis, history of acute calculus cholecystitis there were dense adhesions to the gallbladder Postoperative diagnosis: Same Procedure performed: Laparoscopic cholecystectomy Surgeon: Dr. Oz Schmitz DO Estimated blood loss: 5 mL Specimens: Gallbladder to pathology Complications: None apparent Description of procedure: Patient was wheeled into the operative room and placed on the OR table in a supine position. Abdomen was inspected prepped and draped in usual sterile fashion. Time-out was performed and all present were in agreement. A 15 blade scalp was used to make a stab incision in the left upper quadrant and intra- abdominal insufflation was achieved using a Veress needle. After localizing the tissue incisions were made and a 5 millimeter trocar was placed into the umbilicus as well as 2 in the right upper quadrant. A 12 millimeter trocar was placed in the epigastrium. There were dense adhesions to the gallbladder, omentum and liver. Adhesions were taken down bluntly and meticulously. Gallbladder was grasped and elevated. The triangle of Calot was carefully dissected using blunt dissection and electrocautery until the triangle of Calot clearly identified. The cystic duct was clipped proximally and double clipped distally. The duct was then ligated proximally. The cystic artery was doubly clipped and ligated. The gallbladder was then removed from the liver bed using electrocautery. The gallbladder was removed from the abdomen using an Endo- Catch bag through the epigastric incision. The liver bed was inspected and no bleeding was seen. The abdomen was irrigated and suctioned. All ports removed. Skin was washed and dried. Incisions were closed with 4-0 Monocryl in a subcuticular interrupted fashion. Skin glue was applied. Patient tolerated the procedure well.
--- NOTE | 2023-06-11 10:32 | PC.NURSE ---
1031 - oral airway removed - simple mask in place
--- NOTE | 2023-06-11 11:26 | SUR.PHASEII ---
REPORT GIVEN TO [facility] STAFF MEMBER AND DISCHARGE INSTRUCTION REVIEWED WITH NICK YAO.
[2023-06-11] MEDS: ondansetron 2 mg/ML SDV 2 mL 4 MG IVP (11:56)
--- NOTE | 2023-06-11 14:58 | ANE.PACU2 ---
Inpatient post-anesthesia follow up: Airway intact: Yes Vital signs: Temperature 97.5 F Pulse Rate 65 Respiratory Rate 14 Blood Pressure 92/53 Pulse Oximetry 93 Oxygen Delivery Me thod Nasal Cannula Oxygen Flow Rate 2 Fraction of Inspir ed Oxygen Hydration adequate: Yes Nausea and vomiting: No Pain level: 2 Mental status: Baseline
== END 2023-06-11 12:23 | disposition home or self-care (01) ==
PROVIDERS: PCP Family Medicine; Visit Provider Surgery
PROC: 0FT44ZZ Resection of Gallbladder, Percutaneous Endoscopic Approach (ICD-10-PCS; CPT 47562; principal; 2023-06-11 08:35)
DX: K80.10 Calculus of gallbladder with chronic cholecystitis without obstruction (principal); Z86.718 Personal history of other venous thrombosis and embolism; E66.01 Morbid (severe) obesity due to excess calories; Z68.42 Body mass index [BMI] 45.0-49.9, adult; F79 Unspecified intellectual disabilities
CPT/HCPCS: 47562; 88304; J0690; J2250; J2405; J2704; J2710; J3010; J3490; J7030

== ENCOUNTER → 2023-06-27 15:15 | Outpatient (BNVA) | payer MEDICARE, MEDICAID, SELFPAY | PROVIDERS: PCP Family Medicine; Visit Provider Surgery | DX: Z90.49 Acquired absence of other specified parts of digestive tract (principal); Z98.890 Other specified postprocedural states | CPT/HCPCS: 99024 ==

== ENCOUNTER → 2023-08-12 13:55 | Outpatient (BNVA) | payer MEDICARE, MEDICAID, SELFPAY | PROVIDERS: PCP Family Medicine; Visit Provider Specialist | DX: M25.552 Pain in left hip (principal) | CPT/HCPCS: 73502; 99204 ==

== ENCOUNTER 2024-09-16 12:10 | Outpatient (CLI) | payer MEDICARE, MEDICAID, SELFPAY ==
--- NOTE | 2024-09-16 12:19 | MR_ITS ---
WS: [id number] MRI RIGHT LOWER LEG. WITH AND WITHOUT CONTRAST CONTRAST. COMPARISON: 08/12/2024 ultrasound Multiplanar, multisequence imaging is performed with and without contrast. MultiHance 20 mL. Marker is placed along the lateral RIGHT lower extremity at the area of the palpable abnormality. There is mild heterogeneous signal in the soft tissues. The fascia appears to be intact. No protrusion of the muscle through a ruptured fascial plane. There is a small amount of edema in the soft tissues. On the recent ultrasound did look suspicious for a defect with muscle herniation. There are no enhancing masses. No muscle atrophy or edema. MR/MR lower leg RT wo/w con [id number] IMPRESSION: No myofascial hernia identified in the RIGHT lower extremity. There is a small amount of increased signal in the subcutaneous soft tissues at the site of the marker. No mass or abnormal enhancement.
[2024-09-16] MEDS: gadobenate dimeglumine 20 mL vial IV (13:16)
== END 2024-09-16 12:11 | disposition home or self-care (01) ==
LOC: RAD 12:15
PROVIDERS: PCP Family Medicine; Visit Provider Family Medicine
DX: M79.89 Other specified soft tissue disorders (principal)
CPT/HCPCS: 73720